=== PATIENT | female | born 1990 | race Two or more races ===

== ENCOUNTER → 2018-02-17 14:53 | Outpatient (CLI) | payer BC, SELFPAY ==
[2018-02-26 11:44] LABS: HPV APTIMA, High Risk Positive (Negative); HPV Reflexed? YES, CHARGE PATIENT
== END ==
PROVIDERS: Visit Provider Obstetrics & Gynecology
DX: Z12.4 Encounter for screening for malignant neoplasm of cervix (principal)
CPT/HCPCS: 87624; 88175; G0145

== ENCOUNTER → 2018-02-25 13:50 | Outpatient (CLI) | payer BC, SELFPAY ==
[2018-02-25 17:06] LABS: Chlamydia Trachomatis by PCR Negative (Negative); Neisserai gonorrhoeae by PCR Negative (Negative); Probe Check PASS; Sample Adequacy Control PASS; Specimen Processing Control PASS
== END ==
PROVIDERS: Visit Provider Obstetrics & Gynecology
DX: Z11.3 Encounter for screening for infections with a predominantly sexual mode of transmission (principal)
CPT/HCPCS: 87491; 87591

== ENCOUNTER → 2018-03-10 14:09 | Outpatient (CLI) | payer BC, SELFPAY ==
--- NOTE | 2018-03-10 | CER_PTH ---
PATIENT: AUGUSTA ORTA [facility] U#:[id number] AGE/SX: 35/F ROOM: RE03/10/[address]: Dr. Marco Mota MD : 1990 BED: DIS: SPEC #: [id number] RECD: 03/11/18 13:23 STATUS: RICH CHRISTOPHER #: [id number] STUART: 03/10/18 00:[address]: Marco Mota DEPT: SURGICAL PATHOLOGY RECD BY: Erick Freeman Tissues: A - Uterine cervix, NOS B - Endocervical Procedures: Surgery Specimen Level IV HEADER OPERATION: Colposcopy PRE-OP DIAGNOSIS: ASCUS R87.610, positive HPV R87.810 TISSUE SUBMITTED: A ? Cervical biopsy 6 o?clock, B - ECC MICROSCOPIC DIAGNOSIS A. 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 Chronic inflammation and squamous metaplasia. See comment. B. ECC: Fragments of benign endocervical epithelium, blood and mucous, negative for dysplasia. JAQUELINE:mike 03/15/18 COMMENT A. Results from immunohistochemistry ([id number]) for surrogate HPV marker (p16) will be reported separately. MICROSCOPIC DESCRIPTION Slides are reviewed. GROSS DESCRIPTION A - Received in fixative is one container labeled with the patient's name and designated cervical biopsy at 6 o'clock. The specimen consists of two irregular fragments of light ochoa soft tissue that in aggregate measure 1 x 0.4 x 0.1 cm. The specimen is totally submitted in one cassette. B - Received in fixative is one container labeled with the patient's name and designated ECC. The specimen consists of multiple fragments of hemorrhagic soft tissue that in aggregate measure 1.5 x 1 x 0.1 cm. The specimen is totally submitted in one cassette. / JAQUELINE:mike 03/11/18 TC:5 CPT: 15418 x2
--- NOTE | 2018-03-10 | IMM_PTH ---
PATIENT: AUGUSTA ORTA LOC: [facility] U#:[id number] AGE/SX: 35/F ROOM: RE03/10/[address]: Dr. Marco Mota MD : 1990 BED: DIS: SPEC #: [id number] RECD: 03/15/18 11:24 STATUS: RICH REQ #: [id number] STUART: 03/10/18 00:[address]: Marco Mota DEPT: IMMUNOHISTOCHEMISTRY RECD BY: Isadora Neri Tissues: A - Uterine cervix, NOS Procedures: p16 (initial) KI-67 (add) PHYSICIAN & INSTITUTION [place] [id number] SPECIMEN INFORMATION: Tissue Source: A ? Cervical biopsy 6 o?clock Clinical Info: ASCUS, HPV positive Specimen Number: [id number] CPT code: 44295, 61624 METHODOLOGY: Deparaffinized sections of prefer/formalin-fixed tissue or PAP/DQ stained slides are incubated with monoclonal/polyclonal antibodies/oligonucleotide probes. Localization is made via biotin free immunoperoxidase method. Appropriate controls are performed and reacted as expected. Results on target cell population are indicated in the following table: RESULTS: ANTIBODY / CLONE RESULT Block A P16 (E6H4) positive, focal and patchy Ki-67 (30-9) positive, low These tests were developed and their performance characteristics determined by [facility]. They may not have been cleared or approved by the U.S. Food and Drug Administration. The FDA has determined that such clearance or approval is not necessary. INTERPRETATION: A. Cervix, 6 o?clock, biopsy: Focal mild squamous dysplasia. SJ:mike 03/16/18
== END ==
PROVIDERS: Visit Provider Obstetrics & Gynecology
DX: R87.610 Atypical squamous cells of undetermined significance on cytologic smear of cervix (ASC-US) (principal); R87.810 Cervical high risk human papillomavirus (HPV) DNA test positive
CPT/HCPCS: 88305; 88341; 88342

== ENCOUNTER → 2019-02-02 17:25 | Outpatient (CLI) | payer BC, SELFPAY ==
[2019-02-08 17:18] LABS: HPV APTIMA, High Risk Positive (Negative)
== END ==
PROVIDERS: Referring Provider Obstetrics & Gynecology; Visit Provider Obstetrics & Gynecology
DX: Z12.4 Encounter for screening for malignant neoplasm of cervix (principal)
CPT/HCPCS: 88175; G0145

== ENCOUNTER → 2019-03-16 14:51 | Outpatient (CLI) | payer BC, SELFPAY ==
--- NOTE | 2019-03-16 | IMM_PTH ---
PATIENT: AUGUSTA ORTA LOC: [facility] U#:[id number] AGE/SX: 35/F ROOM: RE03/16/[address]: Dr. Marco Mota MD : 1990 BED: DIS: SPEC #: [id number] RECD: 03/17/19 13:37 STATUS: RICH RECatrachito #: [id number] STUART: 03/16/19 00:[address]: Marco Mota DEPT: IMMUNOHISTOCHEMISTRY RECD BY: Isadora Neri Tissues: A - Endocervical Procedures: p16 (initial) KI-67 (add) PHYSICIAN & INSTITUTION [place] [id number] SPECIMEN INFORMATION: Tissue Source: A - Four quadrant endocervical biopsy Clinical Info: SOLE Specimen Number: [id number] CPT code: 29294, 12368 METHODOLOGY: Deparaffinized sections of prefer/formalin-fixed tissue or PAP/DQ stained slides are incubated with monoclonal/polyclonal antibodies/oligonucleotide probes. Localization is made via biotin free immunoperoxidase method. Appropriate controls are performed and reacted as expected. Results on target cell population are indicated in the following table: RESULTS: ANTIBODY / CLONE RESULT Block A P16 (E6H4) positive, moderate to strong, block-like Ki-67 (30-9) positive, moderate These tests were developed and their performance characteristics determined by [facility]. They may not have been cleared or approved by the [place].S. Food and Drug Administration. The FDA has determined that such clearance or approval is not necessary. INTERPRETATION: A. Four quadrant endocervical biopsy: Consistent with moderate squamous dysplasia (HSIL). AM:mike 03/20/19
--- NOTE | 2019-03-16 12:45 | CER_PTH ---
PATIENT: AUGUSTA ORTA [id number] AGE/SX: 35/F ROOM: RE03/16/[address]: Dr. Marco Mota MD : 1990 BED: DIS: SPEC #: [id number] RECD: 03/16/19 13:57 STATUS: RICH CHRISTOPHER #: [id number] STUART: 03/16/19 12:[address]: Marco Mota DEPT: SURGICAL PATHOLOGY RECD BY: Arnoldo Munoz Tissues: A - Uterine cervix, NOS B - Uterine cervix, NOS Procedures: Surgery Specimen Level IV HEADER OPERATION: Colposcopy PRE-OP DIAGNOSIS: LGSIL TISSUE SUBMITTED: A - Four-quadrant endocervical, B - ECC MICROSCOPIC DIAGNOSIS A. Endocervix, four quadrant biopsy: Mild to moderate squamous dysplasia, DAVID I-II (HGSIL). Changes consistent with HPV cytopathic effect. Mild chronic inflammation. B. Endocervix, curettings: Strips of benign superficial endocervix. No evidence of dysplasia. AM:mike 03/17/19 COMMENT A. Results from immunohistochemistry ([id number]) for surrogate HPV marker (p16) will be reported separately. Reference is made to the patient's previous cervical biopsy from 2018 ([id number]) in which mild squamous dysplasia was identified. MICROSCOPIC DESCRIPTION Slides are reviewed. GROSS DESCRIPTION A - Received in fixative is one container labeled with the patient's name and designated four quad. The specimen consists of multiple irregular fragments of light ochoa soft tissue that in aggregate measure 1.5 x 0.6 x 0.1 cm. The specimen is totally submitted in one cassette. B - Received in fixative is one container labeled with the patient's name and designated ECC. The specimen consists of reddish-ochoa mucoid material aggregating to 1.5 x 1.2 x <0.1 cm. The specimen is totally submitted in one cassette. / AM:mike 03/16/19 TC:3 CPT: 30953 x2
== END ==
PROVIDERS: Referring Provider Obstetrics & Gynecology; Visit Provider Obstetrics & Gynecology
DX: R87.612 Low grade squamous intraepithelial lesion on cytologic smear of cervix (LGSIL) (principal)
CPT/HCPCS: 88305; 88341; 88342

== ENCOUNTER → 2020-03-13 13:35 | Outpatient (CLI) | payer BC, SELFPAY ==
[2020-03-18 16:30] LABS: HPV APTIMA, High Risk Negative (Negative); HPV Reflexed? YES, CHARGE PATIENT
== END ==
PROVIDERS: Visit Provider Obstetrics & Gynecology
DX: Z12.4 Encounter for screening for malignant neoplasm of cervix (principal)
CPT/HCPCS: 87624; 88175; G0145

== ENCOUNTER → 2021-03-27 14:48 | Outpatient (CLI) | payer BC, SELFPAY ==
[2021-04-02 13:15] LABS: HPV APTIMA, High Risk Negative (Negative)
[2021-04-02 13:29] LABS: HPV Reflexed? YES, CHARGE PATIENT
== END ==
PROVIDERS: Visit Provider Obstetrics & Gynecology
DX: Z12.4 Encounter for screening for malignant neoplasm of cervix (principal)
CPT/HCPCS: 87624; 88175; G0145

== ENCOUNTER → 2021-08-01 09:45 | Outpatient (CLI) | payer OTHER, SELFPAY ==
[2021-08-01 12:03] LABS: Absolute Lymphocyte Count 1.67 X10^3/uL (0.83-4.51); Absolute Neutrophil Count 2.5 X10^3/uL (2.0-7.7); Basophil# 0.04 X10^3/uL; Basophil% 0.9 % (0-1); Eosinophil# 0.06 X10^3/uL; Eosinophils% 1.3 % (0-5); Hematocrit 40.9 % (37-47); Hemoglobin 13.8 g/dL (12.0-15.0); Lymphocyte # 1.67 X10^3/ul (0.83-4.51); Lymphocyte % 36.1 % (19-41); Mean Corp Hgb Conc 33.7 g/dL (32-36); Mean Corpuscular Hgb 32.7 pg (27.0-32.0); Mean Corpuscular Volume 96.9 fL (81-99); Monocyte# 0.36 X10^3/uL; Monocyte% 7.8 % (0-10); NRBC Flagged by Analyzer 0 % (0-5); Neutrophil % 53.9 % (47-70); Platelet Count 320 K/mm3 (150-450); RBC Distribution Width CV 12.6 % (11.6-14.6); RBC Distribution Width SD 44.6 fl (35.1-43.9); Red Blood Count 4.22 M/mm3 (4.2-5.4); White Blood Count 4.6 K/mm3 (4.4-11.0)
[2021-08-01 12:19] LABS: Vitamin D,25 Hydroxy 21.7 ng/mL
[2021-08-01 12:24] LABS: Hemoglobin A1c 5.3 % (3.8-5.6)
[2021-08-01 12:50] LABS: AST(SGOT) 17 U/L (15-37); Alanine Aminotransfer ALT/SGPT 24 U/L (13-56); Albumin, Serum 3.9 g/dL (3.2-5.0); Alkaline Phosphatase 62 U/L (45-117); Anion Gap 7 (5-15); BUN 10 mg/dL (7-18); BUN/Creat Ratio 14.1 RATIO (10-20); Chloride 108 mmol/L (98-107); Cholesterol 189 mg/dL (200); Creatinine, Serum 0.71 mg/dL (0.55-1.02); EST Glomerular Filtration Rate 103 mL/min (>60); Est Glom Filt Rate - Afr Amer 124 mL/min (>60); Globulin 4.1 g/dL (2.2-4.2); Glucose 96 mg/dL (74-106); High Density Lipoprotein 78 mg/dL; Sodium Level 138 mmol/L (136-145); Thyroid Stim Hormone (TSH) 1.74 uIU/mL (0.358-3.74); Triglycerides 38 mg/dL; Very Low Density Lipoprotein 8 mg/dL (5-40)
== END ==
PROVIDERS: PCP Internal Medicine; Referring Provider Internal Medicine; Visit Provider Internal Medicine
DX: Z00.00 Encounter for general adult medical examination without abnormal findings (principal); Z13.1 Encounter for screening for diabetes mellitus; Z13.220 Encounter for screening for lipoid disorders
CPT/HCPCS: 36415; 80053; 80061; 82306; 83036; 84443; 85025